=== PATIENT | female | born 1945 | race Caucasian/White ===

== ENCOUNTER 2020-11-26 17:32 | Emergency (ER) | payer OTHER ==
[2020-11-26 17:43] VITALS: BP 127/70; PULSE 60; TEMP 98.8; BMI 22.8
[2020-11-26] MEDS ORDERED: IBUPROFEN 400 MG TABLET (FP) PO ONE ×2 (17:43→17:44)
== END 2020-11-26 19:15 | disposition home or self-care (01) ==
LOC: FER 17:32
DX: S93.402A Sprain of unspecified ligament of left ankle, initial encounter (principal); W18.42XA Slipping, tripping and stumbling without falling due to stepping into hole or opening, initial encounter; X50.0XXA Overexertion from strenuous movement or load, initial encounter
CPT/HCPCS: 73610-TC-LT-FY; 73630-TC-LT; 99283-25